=== PATIENT | female | born 1970 | race Caucasian/White ===

== ENCOUNTER 2023-08-21 15:31 | Emergency (ER) | payer OTHER, MEDICAID, SELFPAY ==
[2023-08-21 15:39] VITALS: BP 108/83; PULSE 101; RESP 16; TEMP 36.1; O2SAT 97
--- NOTE | 2023-08-21 15:46 | ED.FEMALEGU ---
HPI - Female Genitourinary General Chief complaint: Urogenital-Female Stated complaint: Vaginal Issue Time Seen by Provider: 08/21/23 15:46 Source: patient Mode of arrival: ambulatory Limitations: no limitations History of Present Illness HPI Narrative: 53 yo F presents with with c/o yellow vaginal discharge for 3 days. Reports new sex partner. Also c/o itching. No urinary symptoms. All systems reviewed and negative except as noted above. Related Data Allergies Allergy/AdvReac Type Severity Reaction Status Date / Time codeine Allergy Unknown Unknown Verified 08/21/23 15:47 tramadol Allergy Unknown Unknown Verified 08/21/23 15:47 Review of Systems Review of Systems: CONSTITUTIONAL: Denies fever, chills, or sweats. EYES: Denies visual changes, redness, or discharge. ENT: Denies rhinorrhea, congestion, sore throat, or otalgia. CARDIOVASCULAR: Denies chest pain, palpitations, or edema. RESPIRATORY: Denies cough or dyspnea. GASTROINTESTINAL: Denies abdominal pain, nausea, vomiting, or diarrhea. GENITOURINARY: Reports dysuria, urgency, frequency. Denies hematuria. SKIN: Denies rash or itching. MUSCULOSKELETAL: Denies back pain, joint pain, or myalgia. NEUROLOGIC: Denies headache, numbness, or weakness. PSYCHIATRIC: Denies anxiety or depression. All other systems reviewed are negative, except as documented in HPI. [facility] Family History Family History (Updated 03/25/12 @ 09:59 by DOCTOR UNKNOWN) Other Diabetes mellitus Family history of malignant neoplasm of male breast Family history of mental disorder Social History Social History Alcohol intake: never Comments At time of signature, agree with nursing past medical, surgical, social and family history. There is no relevant family history pertinent to the presenting complaint. Exam Narrative: GENERAL: This is a well-nourished, well-developed patient, in no apparent distress. HEAD: normocephalic, atraumatic. EYES: PERRL. Sclera clear/white. Vision is grossly intact. EARS: External ears normal NOSE: External nose normal NECK: Neck supple, non-tender without lymphadenopathy, masses or thyromegaly. CARDIOVASCULAR: Regular rate and rhythm without murmurs, gallops, or rubs. RESPIRATORY: Clear to auscultation. Breath sounds equal bilaterally. No wheezes, rales, or rhonchi. SKIN: warm, Dry, intact with no suspicious lesions or rash, good texture and turgor. NEURO: awake, alert, and oriented to person, place and time. There were no obvious focal neurologic abnormalities. EXTREMITIES: No joint tenderness, effusion, or edema noted. GENITOURINARY: pelvic exam deferred Course Course Level of Care: Express Care Visit Vital Signs Vital signs: Vital Signs Temperature 36.1 C L 08/21/23 15:39 Pulse Rate 101 H 08/21/23 15:39 Respiratory Rate 16 08/21/23 15:39 Blood Pressure 108/83 08/21/23 15:39 Pulse Oximetry 97 08/21/23 15:39 Oxygen Delivery Room Air 08/21/23 15:39 Temperature 36.1 C L 08/21/23 15:39 Pulse Rate 101 H 08/21/23 15:39 Respiratory Rate 16 08/21/23 15:39 Blood Pressure 108/83 08/21/23 15:39 Pulse Oximetry 97 08/21/23 15:39 Oxygen Delivery Room Air 08/21/23 15:39 Reviewed MDM - Female Genitourinary MDM Narrative Medical decision making narrative: Patient is aware of diagnosis, understands and agrees to treatment plan. Anticipatory guidance given. Patient agrees to follow-up as directed and is aware of reasons to seek care at the emergency department. Portions of this record may have been created with voice recognition software Differential Diagnosis Differential diagnosis: Likely urinary tract infection, bacterial vaginosis and trichomoniasis Lab Data Labs: Urine Glucose Negative Reference Range: Negative Urine Bilirubin Negative Reference Range: Negative
[2023-08-21] MEDS: cefTRIAXone 500 MG, LIDOCAINE HCL 1% LOCAL INJ 1 ML IM (16:05)
[2023-08-21 19:39] LABS: Trichomonas Vag PCR DETECTED (NOT DETECTE)
[2023-08-21 20:21] LABS: Chlamydia trachomatis NOT DETECTED (NOT DETECTE); Neisseria gonorrhoeae PCR NOT DETECTED (NOT DETECTE)
== END 2023-08-21 17:17 | disposition home or self-care (01) ==
PROVIDERS: Emergency Provider Nurse Practitioner Family
DX: A59.9 Trichomoniasis, unspecified (principal); Z11.3 Encounter for screening for infections with a predominantly sexual mode of transmission
CPT/HCPCS: 81003; 87086; 87491; 87591; 87661; 96372; 99214; G0463; J0696